=== PATIENT | male | born 1975 | race Caucasian/White ===

== ENCOUNTER 2018-06-24 11:17 | Emergency (ER) | payer SELFPAY ==
[~2018-06-24] VITALS: Ht 180.3 cm; Wt 99.8 kg
[2018-06-24 11:25] VITALS: BP_SYST 158
--- NOTE | 2018-06-24 11:30 | NUR ---
Pt brought by self, A&Ox4, ambulatory , pt presents to ER with R testicular pain 9/10 and swelling denies bleeding , skin pink and warm , cap refill <3 VS WNL, respirations even and unlabored.
--- NOTE | 2018-06-24 11:30 | NUR ---
Patient to ER bed 05 to gown for evaluation. Side rails up.
--- NOTE | 2018-06-24 11:35 | NUR ---
Dr Parish at bedside examining a patient
[2018-06-24 11:55] LABS: BILIRUBIN,URINE 1+ (NEGATIVE); BLOOD, URINE 1+ (NEGATIVE); CLARITY/URINE CLOUDY (CLEAR); COLOR,URINE YELLOW (YELLOW); GLUCOSE,URINE NEGATIVE (NEGATIVE); KETONES,URINE TRACE (NEGATIVE); LEUKOCYTE ESTERASE ,URINE 3+ (NEGATIVE); NITRITE, URINE NEGATIVE (NEGATIVE); PROTEIN URINE 2+ (NEGATIVE)
[2018-06-24 11:56] LABS: UROBILINOGEN,URINE >=8 (0.2-1.0)
[2018-06-24 12:12] LABS: BACTERIA,URINE FEW /HPF (None Seen); WBC,URINE 20-50 /HPF (0-3)
[2018-06-24 12:13] LABS: MUCUS,URINE 2+ /LPF (None Seen); YEAST,URINE Moderate /HPF (None Seen)
[2018-06-24 12:49] LABS: BASOPHILS % (AUTO) 0.3 % (0.0-2.0); EOSINOPHILS # (AUTO) 0.1 K/uL (0.0-0.4); EOSINOPHILS % (AUTO) 0.8 % (0.0-4.0); HEMATOCRIT 38.7 % (36-54); HEMOGLOBIN 13.1 g/dL (14.0-18.0); LYMPHOCYTES # (AUTO) 1.7 K/uL (1.0-5.5); LYMPHOCYTES % (AUTO) 15.2 % (20.5-51.5); MEAN CORPUSCULAR HEMOGLOBIN 31 pg (27-31); MEAN CORPUSCULAR HGB CONC 34 % (32-36); MEAN CORPUSCULAR VOLUME 92 fL (79.0-98.0); MONOCYTES # (AUTO) 0.8 K/uL (0.0-1.0); MONOCYTES % (AUTO) 6.9 % (1.7-9.3); NEUTROPHILS # (AUTO) 8.4 K/uL (1.8-7.7); NEUTROPHILS % (AUTO) 76.8 % (40.0-70.0); PLATELET COUNT (AUTO) 289 K/uL (130-430); RED BLOOD CELL COUNT(AUTO) 4.23 MIL/uL (4.2-6.2); RED CELL DISTRIBUTION WIDTH 12.1 % (9.0-15.0)
[2018-06-24 12:50] LABS: CALCIUM 9.1 mg/dL (8.4-11.0); CREATININE 1.12 mg/dL (0.55-1.30); POTASSIUM 3.4 mmol/L (3.5-5.1)
[2018-06-24 13:07] LABS: TOTAL BILIRUBIN 0.8 mg/dL (0.0-1.0)
[2018-06-24] MEDS ORDERED: LEVOFLOXACIN 500 MG TABLET PO ONE (13:15)
[2018-06-24] MEDS ORDERED: IBUPROFEN 800 MG TABLET PO ONE (13:45)
--- NOTE | 2018-06-24 14:22 | NUR ---
Patient given written and verbal discharge instructions and verbalizes understanding. ER MD discussed with patient the results and treatment provided. Patient in stable condition. ID arm band removed. Rx of MOTRIN, NORCO, LEVAQUIN given. Patient educated on pain management and to follow up with PMD. Pain Scale 0/10. Opportunity for questions provided and answered. Medication side effect fact sheet provided.
[2018-06-24 14:25] VITALS: BP_SYST 140
== END 2018-06-24 14:22 | disposition home or self-care (01) ==
LOC: SED 11:17
DX: N45.1 Epididymitis (principal); N39.0 Urinary tract infection, site not specified
CPT/HCPCS: 36415; 76870-TC; 80053; 81000-TC; 85025; 87040-TC; 87086; 87186-TC; 99285

== ENCOUNTER 2020-11-21 15:00 | Emergency (ER) | payer SELFPAY ==
[~2020-11-21] VITALS: Ht 170.2 cm; Wt 83.9 kg
[2020-11-21 15:22] VITALS: BP_SYST 149
[2020-11-21 16:30] VITALS: BP_SYST 149
== END 2020-11-21 16:30 | disposition home or self-care (01) ==
LOC: SED 15:00
DX: G47.00 Insomnia, unspecified (principal)
CPT/HCPCS: 93005; 99283